=== PATIENT | male | born 1965 | race Caucasian/White ===

== ENCOUNTER 2018-05-14 08:29 | Emergency (ER) | payer OTHER ==
[2018-05-14] MEDS ORDERED: HYDROcodone /APAP 5/325 1 EACH TABLET PO ONE (08:51)
[2018-05-14] MEDS ORDERED: ORPHENADRINE (NF) 100 MG TABLET.ER PO ONE (08:51)
--- NOTE | 2018-05-14 09:14 | ED Physician Documentation ---
General Adult - HISTORIAN Historian: patient - HPI Stated Complaint: fall Chief Complaint: General Adult Additional Information: Patient presents to ED after slipping on ice and falling today while at work. Patient states he landed on his left side with a fire hydrant breaking his fall. He is on [place] for afib. He is complaining of left sided back and rib pain. He denies hitting his head or loss of consciousness. Onset: hours (1) Timing: still present Severity: moderate Further Comments: no - ROS CONST: denies: fever EYES/ENT: denies: problems with vision CVS/RESP: denies: chest pain, shortness of breath GI/: denies: abdominal pain, vomiting, nausea MS/SKIN/LYMPH: denies: neck pain NEURO/PSYCH: denies: headache, dizziness, numbness, difficulty walking - PAST HX Past History: A-Fib, hypertension Surgeries/Procedures: none Allergies/Adverse Reactions: Allergies Allergy/AdvReac Type Severity Reaction Status Date / Time No Known Allergies Allergy Verified 05/14/18 08:59 Home Medications: Ambulatory Orders Medication Instructions Recorded Orphenadrine Citrate [Norflex] 100 mg PO BID #20 tab 05/14/18 - SOCIAL HX Smoking History: non-smoker Alcohol Use: none Drug Use: none - FAMILY HX Family History: No - VITAL SIGNS Vital Signs: Vital Signs Temp Pulse Resp BP Pulse Ox 98.7 F 72 6 L 169/103 97 05/14/18 08:30 05/14/18 08:30 05/14/18 08:30 05/14/18 08:30 05/14/18 08:30 - REVIEWED ASSESSMENTS Nursing Assessment Reviewed: Yes Vitals Reviewed: Yes ED Results Lab/Radiology - Radiology Radiology Impressions: Examination: Plain film lumbar spine History: FELL ON ICE TODAY Findings: 3 views of the lumbar spine demonstrate normal height. No anterior compression. Osteophyte formation. Slight curvature to the right. No soft tissue abnormalities. Impression: Degenerative spurring. No compression deformity. Electronically signed on May 14, 2018 10:08:17 AM PAPER STRIPPER by: Avinash Blood Examination: PA and lateral chest. History: Evaluate lung pugh. FELL ON ICE TODAY Comparison exam: None provided. Findings: PA and lateral views of the chest demonstrates a normal cardiac and mediastinal silhouette. Tortuous aorta. No focal infiltrate. No blunting of the costophrenic margins. Osseous structures are appropriate for age. Impression: No acute pulmonary process. Electronically signed on May 14, 2018 10:07:31 AM PAPER STRIPPER by: Avinash Blood - Orders Orders: ED Orders Category Date Time Status CHEST 2VIEW [RAD] Stat Exams 05/14/18 Ordered HYDROcodone /APAP 5/325 [[place] 5/325] Med 05/14/18 08:51 Discontinued 1 each PO NOW ONE Orphenadrine Citrate [Norflex] Med 05/14/18 08:51 Discontinued 100 mg PO NOW ONE General Adult Physical Exam - PHYSICAL EXAM GENERAL APPEARANCE: no distress EENT: VALERIA NECK: supple RESPIRATORY: chest non-tender, breath sounds normal CVS: reg rate & rhythm, heart sounds normal ABDOMEN: soft, tenderness BACK: normal inspection, other (left posterior rib tenderness. No vertebral tenderness). No: ecchymosis SKIN: warm/dry, normal color EXTREMITIES: non-tender, no evidence of injury, edema (+1 lower extremity edema to knee, compression stocking in place ) NEURO: oriented X3, motor nml Discharge Clincal Impression: Fall Qualifiers: Encounter type: initial encounter Qualified Code(s): W19.XXXA - Unspecified fall, initial encounter Prescriptions: Orphenadrine Citrate [Norflex] 100 mg PO BID #20 tab Referrals: Primary Doctor,No [Primary Care Provider] - 2 Days Additional Instructions: 1. Tylenol and/or ibuprofen as needed for pain 2. Apply ice to affected area for comfort 3. Stay active 4. Follow up with PCP within 1 week 5. Return to ER for new or worsening symptoms. 6. Rx sent to Pharmacy Condition: Stable Decision to Admit: NO Date of Decison to Admit: 05/14/18 Decision Time: 10:18
[2018-05-14] MEDS ORDERED: ORPHENADRINE CITRATE 60 MG/2 ML ML ONE (09:34)
[2018-05-14] MEDS ORDERED: ORPHENADRINE CITRATE 60 MG/2 ML ML IM ONE (09:35)
[2018-05-14 10:29] VITALS: BP 140/93
--- NOTE | 2018-05-14 15:38 | Diagnostic Imaging Report ---
ROME QUINONES [facility] [address] [facility] [address] [place], [place]. [address] Report Submission Date: May 14, 2018 10:07:31 AM SCALEMAN Patient Study Name: SEVEN ROBLES Date: May 14, 2018 9:33:15 AM SCALEMAN Modality Type: DX Gender: M Description: CHEST 2VIEW : 61 Institution: [facility] Physician: ROME QUINONES Examination: PA and lateral chest. History: Evaluate lung pugh. FELL ON ICE TODAY Comparison exam: None provided. Findings: PA and lateral views of the chest demonstrates a normal cardiac and mediastinal silhouette. Tortuous aorta. No focal infiltrate. No blunting of the costophrenic margins. Osseous structures are appropriate for age. Impression: No acute pulmonary process. Electronically signed on May 14, 2018 10:07:31 AM SCALEMAN by: Avinash SANCHES
--- NOTE | 2018-05-14 15:39 | Diagnostic Imaging Report ---
<p>Your browser does not support iframes.</p> ROME QUINONES [facility] [address] [facility] [address] [address] Report Submission Date: May 14, 2018 10:08:17 AM DIRECTOR OF OPTIMIZATION Patient Study Name: SEVEN ROBLES Date: May 14, 2018 9:33:15 AM DIRECTOR OF OPTIMIZATION Modality Type: DX Gender: M Description: L SPINE 2 OR 3 VIEWS : 61 Institution: [facility] Physician: ROME QUINONES Examination: Plain film lumbar spine History: FELL ON ICE TODAY Findings: 3 views of the lumbar spine demonstrate normal height. No anterior compression. Osteophyte formation. Slight curvature to the right. No soft tissue abnormalities. Impression: Degenerative spurring. No compression deformity. Electronically signed on May 14, 2018 10:08:17 AM DIRECTOR OF OPTIMIZATION by: Avinash SANCHES
== END 2018-05-14 10:27 ==
LOC: ED 08:29
DX: M54.5 Low back pain (principal); R07.81 Pleurodynia; W00.0XXA Fall on same level due to ice and snow, initial encounter; Y93.9 Activity, unspecified; Y92.89 Other specified places as the place of occurrence of the external cause; Y99.0 Civilian activity done for income or pay
CPT/HCPCS: 71046; 72100; 96372; 99283; 99284; A9270; J2360